=== PATIENT | male | born 1970 | race Caucasian/White ===

== ENCOUNTER 2018-06-03 10:40 | Emergency (ER) | payer MEDICAID ==
[~2018-06-03] VITALS: Ht 167.6 cm; Wt 77.1 kg
[2018-06-03 10:55] VITALS: BP 144/85
--- NOTE | 2018-06-03 10:55 | NUR ---
pt ambulated to bed 4
--- NOTE | 2018-06-03 11:00 | NUR ---
48y/m bib self c/o bright red blood in stool moderate amount x 3 days. pt denies injury/trauma. pt denies abdominal pain. pt last bm this am denies straining.SKIN IS PINK/WARM/DRY; AAOX4 WITH EVEN AND STEADY GAIT; PATIENT STATES PAIN OF 0/10 AT THIS TIME; VSS; PATIENT POSITIONED FOR COMFORT; HOB ELEVATED; BEDRAILS UP X1; BED DOWN. ER MD MADE AWARE OF PT STATUS.
--- NOTE | 2018-06-03 13:53 | NUR ---
Patient discharged with v/s stable. Written and verbal after care instructions given and explained. Patient alert, oriented and verbalized understanding of instructions. Ambulatory with steady gait. All questions addressed prior to discharge. ID band removed. Patient advised to follow up with PMD. Rx of COLACE AND RECTICARE %5 CREAM given. Patient educated on indication of medication including possible reaction and side effects. Opportunity to ask questions provided and answered.
[2018-06-03 13:55] VITALS: BP 140/83
== END 2018-06-03 13:53 | disposition home or self-care (01) ==
LOC: MED 10:40
DX: K64.4 Residual hemorrhoidal skin tags (principal); I10 Essential (primary) hypertension
CPT/HCPCS: 99283